=== PATIENT | female | born 1970 | race African-American/Black ===

== ENCOUNTER 2017-01-27 14:59 | Emergency (ER) | payer SELFPAY ==
[2017-01-27] MEDS ORDERED: HYDROcodone/Acetaminophen 10/325 mg Tablet ONE (15:26)
== END 2017-01-27 15:35 | disposition home or self-care (01) ==
LOC: NAV ERS 14:59
DX: S39.82XA Other specified injuries of lower back, initial encounter (principal); F17.210 Nicotine dependence, cigarettes, uncomplicated; Z87.442 Personal history of urinary calculi; E66.9 Obesity, unspecified; X50.0XXA Overexertion from strenuous movement or load, initial encounter; Y92.69 Other specified industrial and construction area as the place of occurrence of the external cause; Y99.0 Civilian activity done for income or pay
CPT/HCPCS: 99283

== ENCOUNTER 2019-08-19 05:21 | Emergency (ER) | payer SELFPAY ==
[2019-08-19] MEDS ORDERED: HYDROcodone/Acetaminophen 10/325 mg Tablet ONE (05:42)
[2019-08-19] MEDS ORDERED: Lidocaine 1% (PF) 30 ML VIAL ONE (05:45)
[2019-08-19] MEDS ORDERED: Sulfameth/Trimethoprim DS 800-160mg TAB ONE (05:45)
== END 2019-08-19 06:26 | disposition home or self-care (01) ==
LOC: NAV ERS 05:21
DX: N61.1 Abscess of the breast and nipple (principal); I49.1 Atrial premature depolarization; E66.9 Obesity, unspecified; F17.210 Nicotine dependence, cigarettes, uncomplicated
CPT/HCPCS: 10060; 87070; 87076; 87205; 93005; J2001

== ENCOUNTER 2020-11-14 17:46 | Emergency (ER) | payer SELFPAY ==
[2020-11-15 06:14] LABS: SARS-CoV-2 MS2 Positive; SARS-CoV-2 N Gene Negative; SARS-CoV-2 S Gene Negative; SARS-CoV-2 by NAA Not Detected (NotDetected); SARS-CoV-2 orf1ab Negative
== END 2020-11-14 18:25 | disposition home or self-care (01) ==
LOC: NAV ERS 17:46
DX: Z20.822 Contact with and (suspected) exposure to COVID-19 (principal); F17.210 Nicotine dependence, cigarettes, uncomplicated
CPT/HCPCS: 87635; 99283; U0003

== ENCOUNTER 2023-10-13 16:03 | Emergency (ER) | payer SELFPAY ==
[2023-10-13] MEDS ORDERED: HYDROcodone/Acetaminophen 5/325 mg Tablet ONE (16:41)
[2023-10-13] MEDS ORDERED: Boostrix 0.5 ML (Tdap) VIAL (>/=7 yrs of age) ONE (16:42)
[2023-10-13] MEDS ORDERED: Lidocaine 1% (PF) 30 ML VIAL ONE (16:51)
[2023-10-13] MEDS ORDERED: Sulfameth/Trimethoprim DS 800-160mg TAB ONE (17:22)
== END 2023-10-13 17:35 | disposition home or self-care (01) ==
LOC: NAV ERS 16:03
DX: N61.1 Abscess of the breast and nipple (principal); F17.210 Nicotine dependence, cigarettes, uncomplicated
CPT/HCPCS: 10060; 87070; 87205; 90471; 90715; J2001